=== PATIENT | male | born 1950 | race Caucasian/White ===

== ENCOUNTER 2024-01-08 16:04 | Emergency (ER) | payer OTHER, MEDICARE ==
[~2024-01-08] VITALS: Ht 167.6 cm; Wt 90.9 kg
[2024-01-08] MEDS ORDERED: GADOTERATE MEGLUMINE 7.5 MMOL/15 ML VIAL IV ONE (18:02)
[2024-01-08] MEDS: CefTRIAXone 2gm/D5W 50ml BAG 50 ML IV ONE (18:23)
[2024-01-08 18:47] LABS: MEAN PLATELET VOLUME 7.4 FL (7.4-10.4)
[2024-01-08 18:49] LABS: BASOPHILS % (AUTO) 0.4 % (0-1); EOSINOPHILS # (AUTO) 0.2 X10'3 (0-0.9); EOSINOPHILS % (AUTO) 2.1 % (0-6); HEMOGLOBIN 13.9 g/dl (14.0-17.9); LYMPHOCYTES % (AUTO) 21.2 % (21-51); MEAN CORPUSCULAR HEMOGLOBIN 31.7 PG (27.0-31.0); MEAN CORPUSCULAR HGB CONC 33.8 g/dL (33.0-36.5); MONOCYTES # (AUTO) 0.9 X10'3 (0-0.9); MONOCYTES % (AUTO) 9.6 % (2-12); NEUTROPHILS # (AUTO) 6.2 X10'3 (1.8-7.7); NEUTROPHILS % (AUTO) 66.7 % (42-75); PLATELET COUNT 215 X10'3 (140-440); RED BLOOD COUNT 4.37 X10'6 (4.70-6.10); RED CELL DISTRIBUTION WIDTH 13.9 % (11.5-14.5); WHITE BLOOD COUNT 9.3 X10'3 (4.5-11.0)
[2024-01-08 18:55] LABS: ALANINE AMINOTRANSFERASE 25 U/L (12-78); ALBUMIN 3.7 G/DL (3.4-5.0); ALKALINE PHOSPHATASE 72 IU/L (46-116); ANION GAP 6 (8-16); ASPARTATE AMINO TRANSFERASE 17 U/L (10-37); BLOOD UREA NITROGEN 12 MG/DL (7-18); BUN/CREATININE RATIO 12.4 (10.0-20.0); C-REACTIVE PROTEIN 6.19 MG/DL (0.0-0.5); CALCIUM 8.7 MG/DL (8.5-10.1); CHLORIDE 105 MMOL/L (99-107); CREATININE 0.97 MG/DL (0.60-1.10); GLUCOSE 99 MG/DL (70-104); SODIUM 135 MMOL/L (135-145); TOTAL PROTEIN 7.3 G/DL (6.4-8.2); eCRCL 60 ML/MIN; eGFR 76 ML/MIN
[2024-01-08 18:56] LABS: APTT 28 SECONDS (22-32); FIBRINOGEN 427 MG/DL (177-424); INR 1.1 INR; PROTHROMBIN TIME 11.1 SECONDS (9.0-12.0)
[2024-01-08 18:58] LABS: POTASSIUM 4.1 MMOL/L (3.5-5.1)
[2024-01-08] MEDS ORDERED: DOXY100C43 PO (19:35)
[2024-01-08] MEDS ORDERED: AMOX-580 PO (19:35)
[2024-01-08 19:42] VITALS: BP 124/70; PULSE 78; RESP 20; TEMP 98; O2SAT 95
== END 2024-01-08 19:44 | disposition home or self-care (01) ==
LOC: ER 16:05
DX: J01.10 Acute frontal sinusitis, unspecified (principal); R51.9 Headache, unspecified; R79.1 Abnormal coagulation profile; Z79.2 Long term (current) use of antibiotics
CPT/HCPCS: 36415; 70450; 70553; 80053; 83605; 84145; 85025; 85384; 85610; 85651; 85730; 86140; 87040; 96365; 99285; A9575; J0696